=== PATIENT | female | born 1960 | race Two or more races ===

== ENCOUNTER 2022-11-26 10:54 | Emergency (ER) | payer OTHER ==
[~2022-11-26] VITALS: Ht 168.9 cm; Wt 60.8 kg
[2022-11-26] MEDS ORDERED: EMGALITY P120 MG/1 M SQ (11:09)
[2022-11-26] MEDS ORDERED: ALENDRONATE SOD70 MG PO (11:10)
[2022-11-26] MEDS ORDERED: VITAMIN D3250 MC1 PO (11:10)
[2022-11-26] MEDS ORDERED: CALCIUM500 M1 (11:11)
== END 2022-11-26 15:09 | disposition home or self-care (01) ==
LOC: ER 10:54
DX: R10.84 Generalized abdominal pain (principal)